=== PATIENT | male | born 1985 | race Caucasian/White ===

== ENCOUNTER 2020-04-26 12:05 | Outpatient (CLI) | payer SELFPAY | END 2020-04-26 23:59 | disposition short-term general hospital (02) | LOC: EMS 12:05 | PROVIDERS: ATTEND Surgery | DX: M54.9 Dorsalgia, unspecified (principal); R10.2 Pelvic and perineal pain; M25.562 Pain in left knee; R55 Syncope and collapse; V28.0XXA Motorcycle driver injured in noncollision transport accident in nontraffic accident, initial encounter | CPT/HCPCS: A0425; A0427 ==